=== PATIENT | female | born 1980 | race Caucasian/White ===

== ENCOUNTER 2017-03-28 07:06 | Emergency (ER) | payer BC, OTHER ==
--- NOTE | 2017-03-28 08:31 | UC ---
Hillary Sanchez Alfonso, scribed for Marleny Pandey MD on 03/28/17 at 0809 . Complaint Female HPI - HPI Summary HPI Summary: This patient is a 37 year old F presenting to [facility] with a chief complaint of urinary frequency and urgency since 5 days ago. The patient rates the pain 3/10 in severity with urination only. . Symptoms alleviated by nothing. Patient reports lower abdominal pain (burning and cramping since this morning), and mild nausea. no hematuria. + urgency Patient denies vomiting, back pain, fever , chills, hematuria, vaginal discharge, vaginal order, and vaginal bleeding. Last BM in the morning which was normal. She denies recent sexual activity and possibility of . She reports regular mensural cycles, 4.5-5 weeks a cycle. She states this pain is different from her mensural cycle. She has routine OBGYN follow up, with the last being 2 weeks ago, and denies any history of abnormal pap smears. She denies using a douche or taking a bubble bath. Pt also with wound on LLE, lateral distal leg - had a small mole removed with sutures. pt requesitng wound check dissolvable sutures Patients medication reviewed this visit. - History Of Current Complaint Chief Complaint: UCGU Stated Complaint: BURNING URINATION Time Seen by Provider: 03/28/17 07:09 Hx Obtained From: Patient Hx Last Menstrual Period: 02/22/17 Onset/Duration: Gradual Onset, Lasting Days - 5, Still Present Timing: Constant Severity Currently: Moderate Pain Intensity: 5 Pain Scale Used: 0-10 Numeric Alleviating Factor(s): Nothing Associated Signs And Symptoms: Positive: Nausea. Negative: Fever, Back Pain, Vomiting(# Of Episodes =) - Allergies/Home Medications Allergies/Adverse Reactions: Allergies Allergy/AdvReac Type Severity Reaction Status Date / Time No Known Allergies Allergy Verified 03/28/17 07:28 PMH/Surg Hx/FS Hx/Imm Hx Previously Healthy: No Psychological History: Anxiety, Depression - Surgical History Surgical History: None - Family History Known Family History: Positive: Cardiac Disease, Other - Lung cancer - Social History Alcohol Use: Occasionally Substance Use Type: None Smoking Status (MU): Never Smoked Tobacco Have You Smoked in the Last Year: No Review of Systems Constitutional: Other - Negative fever, chills Gastrointestinal: Abdominal Pain - lower, Nausea, Other - Negative vomiting Genitourinary: Frequency, Urgency, Other - Negative hematuria, vaginal discharge , virginal order, and vaginal bleeding Musculoskeletal: Other: - Negative back pain All Other Systems Reviewed And Are Negative: Yes Physical Exam Triage Information Reviewed: Yes Appearance: Well-Appearing, No Pain Distress Vital Signs: Initial Vital Signs Temp 98.2 F 03/28/17 07:29 Pulse 62 03/28/17 07:29 Resp 16 03/28/17 07:29 BP 111/61 03/28/17 07:29 Pulse Ox 100 03/28/17 07:29 Vital Signs Reviewed: Yes Eye Exam: Normal Eyes: Positive: Conjunctiva Clear ENT Exam: Normal ENT: Positive: Normal ENT inspection, Hearing grossly normal, Pharynx normal Dental Exam: Normal Neck exam: Normal Neck: Positive: Supple, Nontender, No Lymphadenopathy Respiratory Exam: Normal Respiratory: Positive: Chest non-tender, Lungs clear, Normal breath sounds, No respiratory distress, No accessory muscle use Cardiovascular Exam: Normal Cardiovascular: Positive: RRR, No Murmur, Pulses Normal Abdominal Exam: Normal Abdomen Description: Positive: No Organomegaly, Soft. Negative: Nontender - mild suprapubic, CVA Tenderness (R), CVA Tenderness (L) Musculoskeletal Exam: Normal Musculoskeletal: Positive: Strength Intact Neurological Exam: Normal Neurological: Positive: Alert Psychological Exam: Normal Skin: Positive: Other - LLE distal lateral asepct pt with dime sized area of erythema with [address] no drainage, no tenderness, no flucutance no odor - well heaing, no concern for infeciton - pt states sutures absorbable Re-Evaluation - Re-Evaluation First Eval Change: Improved - Pt feeling much better following vagal Comment: Pt markedly improved following vagal episode. Taking po crackers and water. reassuance. pt ambulated without difficulty Complaint Female Dx - Course Course Of Treatment: Pt with dysura, frequency and mild suprapubic tenderness. Pt with non diagnostic urine. Pt states no sexual activity. pt menses irregular at baseline w. pt results will start pyridium culture urine no abx if sx persist, fever, vomiting or other concerns return or go to ED continue hydration. wound c/d/i. during exam, pt was bending over to show me leg wound. Exmination was very warm ad pt with sweatshirt. Pt started to feel nausea and lightheaded. Pt laid flat - given cool cloth and room door opened. Pt improved rapidly. Pt closely re examined and vitals taken - Differential Dx/Diagnosis Provider Diagnoses: dysuria. healing wound check Discharge - Discharge Plan Condition: Stable Disposition: HOME Prescriptions: Phenazopyridine TAB* [Pyridium 100 mg TAB*] 100 mg PO TID #10 tab Patient Education Materials: Dysuria (ED) Referrals: No Primary Care Phys,NOPCP [Primary Care Provider] - Additional Instructions: - Stay well hydrated. Drink plenty of non-alcoholic, non-caffinated beverages - Okay to take medication as prescribed for burning with urination. This will make your urine bright orange. - Your urine has been sent for additional testing - if you need antibiotics you will receive a call from a care cafeteria team leader - If you develop increased or uncontrolled pain, vomiting, fevers, chills, or other concerns - it is recommended you go to the emergency department for additional testing such as lab work or imaging - For your leg wound - monitor for signs of infection - increased reddness, red streaking, drainage, odor swelling - contact your provider or return here with questions or concerns The documentation as recorded by the Hillary awad Alfonso accurately reflects the service I personally performed and the decisions made by me, Marleny Pandey MD.
[2017-03-28 08:36] VITALS: BP 99/65
== END 2017-03-28 08:45 | disposition home or self-care (01) ==
LOC: UCEAST 07:06
DX: R30.0 Dysuria (principal); Z48.817 Encounter for surgical aftercare following surgery on the skin and subcutaneous tissue
CPT/HCPCS: 81003; 87086; 99212; G0463